=== PATIENT | male | born 1995 | race Two or more races ===

== ENCOUNTER 2018-02-01 15:08 | Emergency (ER) | payer MEDICAID ==
[~2018-02-01] VITALS: Ht 180.3 cm; Wt 83.9 kg
[2018-02-01 15:26] VITALS: BP 123/65
== END 2018-02-01 17:00 | disposition left against medical advice (07) ==
LOC: ER 15:08
DX: S61.412A Laceration without foreign body of left hand, initial encounter (principal); Z53.21 Procedure and treatment not carried out due to patient leaving prior to being seen by health care provider; X58.XXXA Exposure to other specified factors, initial encounter; Y93.89 Activity, other specified; Y92.89 Other specified places as the place of occurrence of the external cause; Y99.8 Other external cause status